=== PATIENT | male | born 1980 ===

== ENCOUNTER 2017-03-22 18:35 | Emergency (ER) | payer OTHER, MEDICAID ==
[2017-03-22 18:52] VITALS: BP 116/73; PULSE 78; RESP 18; TEMP 97.2; O2SAT 98
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
--- NOTE | 2017-03-23 08:21 | RAD ---
PROCEDURE: Cervical Spine Radiographs. HISTORY: Pain. COMPARISON: None. FINDINGS: BONES: Alignment maintained. No fracture. Dens Intact. DISC SPACES: Normal. SOFT TISSUES: Normal. No prevertebral soft tissue swelling. OTHER FINDINGS: None. IMPRESSION: Normal cervical spine radiographs
== END 2017-03-22 21:13 | disposition home or self-care (01) ==
LOC: H.ER 18:35
DX: S16.1XXA Strain of muscle, fascia and tendon at neck level, initial encounter (principal); M54.9 Dorsalgia, unspecified; V43.52XA Car driver injured in collision with other type car in traffic accident, initial encounter; Y92.410 Unspecified street and highway as the place of occurrence of the external cause; J45.909 Unspecified asthma, uncomplicated